=== PATIENT | female | born 1990 | race Caucasian/White ===

== ENCOUNTER 2016-07-30 19:14 | Emergency (ER) | payer SELFPAY ==
[~2016-07-30] VITALS: Ht 152.4 cm; Wt 46.3 kg
[2016-07-30 19:34] VITALS: BP 95/51; PULSE 80; RESP 20; TEMP 98.1; O2SAT 99
--- NOTE | 2016-07-30 20:52 | PD ---
HPI Chief Complaint: Abdominal Pain Time Seen by Provider: 20:49 Travel History International Travel<30 days: No Contact w/Intl Traveler<30days: No Traveled to known affect area: No History of Present Illness HPI The patient is a 25-year-old female, G1, P1, A0 who complains of bilateral pelvic pain for 1 day. She has been vaginal bleeding for about 1 day. Her last menstrual period was May 30. She did a home test that was positive. She denies any nausea, vomiting or diarrhea. She denies any fever. She does not have a bat lathe operator or any other doctor. She states she did not need RhoGAM on her first . She believes she is O+ blood type. [facility] Social History Tobacco Use: Yes Allergies-Medications (Allergen,Severity, Reaction): Coded Allergies: Amoxicillin (Verified Allergy, Severe, Hives, 07/30/16) Penicillin (Verified Allergy, Severe, Hives, 07/30/16) Review of Systems Except as stated in HPI: all other systems reviewed are Neg Physical Exam Narrative GENERAL: The patient is alert, oriented 3 and slight apparent distress with her pelvic pain. Her vital signs are normal. SKIN: Focused skin assessment warm/dry. HEAD: Atraumatic. Normocephalic. EYES: Pupils equal and round. No scleral icterus. No injection or drainage. ENT: No nasal bleeding or discharge. Mucous membranes pink and moist. NECK: Trachea midline. No JVD. CARDIOVASCULAR: Regular rate and rhythm. No murmur appreciated. RESPIRATORY: No accessory muscle use. Clear to auscultation. Breath sounds equal bilaterally. GASTROINTESTINAL: Abdomen soft, non-tender, nondistended. Hepatic and splenic margins not palpable. MUSCULOSKELETAL: No obvious deformities. No clubbing. No cyanosis. No edema. NEUROLOGICAL: Awake and alert. No obvious cranial nerve deficits. Motor grossly within normal limits. Normal speech. PSYCHIATRIC: Appropriate mood and affect; insight and judgment normal. GENITOURINARY: Normal external genitalia without lesions or erythema. Vaginal vault with blood and no other drainage. Cervical os was closed with bloody drainage. She has slight cervical motion tenderness. Uterus slightly tender and nonenlarged. Bilateral adnexa slightly tender without masses. Data Data Last Documented VS Vital Signs Date Time Temp Pulse Resp B/P Pulse Ox O2 Delivery O2 Flow Rate FiO2 07/30/16 21:14 98.6 80 18 101/54 100 Room Air Orders Beta Hcg (Quant/Titer) (07/30/16 20:49) Complete Blood Count With Diff (07/30/16 20:49) Basic Metabolic Panel (Bmp) (07/30/16 20:49) Complete Rh (07/30/16 20:49) Labs Laboratory Tests Test 07/30/16 21:00 White Blood Count 9.1 TH/MM3 Red Blood Count 4.27 MIL/MM3 Hemoglobin 13.1 GM/DL Hematocrit 39.1 % Mean Corpuscular Volume 91.6 FL Mean Corpuscular Hemoglobin 30.7 PG Mean Corpuscular Hemoglobin 33.5 % Concent Red Cell Distribution Width 12.4 % Platelet Count 386 TH/MM3 Mean Platelet Volume 6.3 FL Neutrophils (%) (Auto) 66.7 % Lymphocytes (%) (Auto) 22.0 % Monocytes (%) (Auto) 7.9 % Eosinophils (%) (Auto) 2.2 % Basophils (%) (Auto) 1.2 % Neutrophils # (Auto) 6.1 TH/MM3 Lymphocytes # (Auto) 2.0 TH/MM3 Monocytes # (Auto) 0.7 TH/MM3 Eosinophils # (Auto) 0.2 TH/MM3 Basophils # (Auto) 0.1 TH/MM3 CBC Comment DIFF FINAL Differential Comment Sodium Level 139 MEQ/L Potassium Level 3.6 MEQ/L Chloride Level 105 MEQ/L Carbon Dioxide Level 23.9 MEQ/L Anion Gap 10 MEQ/L Blood Urea Nitrogen 6 MG/DL Creatinine 0.64 MG/DL Estimat Glomerular Filtration 114 ML/MIN Rate Random Glucose 85 MG/DL Calcium Level 8.3 MG/DL Human Chorionic Gonadotropin, 1251 MIU/ML Quant Blood Type O POSITIVE Rho(D) Type POSITIVE MDM Medical Decision Making Medical Screen Exam Complete: Yes Emergency Medical Condition: Yes Medical Record Reviewed: Yes Interpretation(s) The CBC is normal. The basic metabolic profile is normal except for a calcium of 8.3. The quantitative beta-hCG is 1251. The blood type is O+. Differential Diagnosis Intrauterine , threatened AB, ectopic , anemia, Rh- status Narrative Course The patient appears to have a threatened AB. She does not have Rh- status and we do not know without a second titer whether her progression of beta titer is normal or not. Plan: The patient should get a repeat titer in about 3 or 4 days and follow-up with a bat lathe operator. If worse, she should return to emergency department. Diagnosis Primary Impression: Threatened Additional Instructions: As we discussed, you need to repeat the beta titer in 3 or 4 days and follow-up with a bat lathe operator. If you are worse with bleeding/pain you should return to emergency department. Take plain Tylenol for the pain. Disposition: 01 DISCHARGE HOME Condition: Stable Danny Jeffers MD Jul 30, 2016 20:52
[2016-07-30 21:14] VITALS: BP 101/54; PULSE 80; RESP 18; TEMP 98.6; O2SAT 100
[2016-07-30 21:20] LABS: AUTOMATED NEUTROPHIL # 6.1 TH/MM3 (1.8-7.7); BASOPHIL # 0.1 TH/MM3 (0-0.2); BASOPHIL % 1.2 % (0.0-2.0); EOSINOPHIL # 0.2 TH/MM3 (0-0.4); EOSINOPHIL % 2.2 % (0.0-4.0); HEMATOCRIT 39.1 % (35.0-46.0); HEMO FLAGS DIFF FINAL; MEAN CELL VOLUME 91.6 FL (80.0-100.0); MEAN CORPUSCULAR HEMOGLOBIN 30.7 PG (27.0-34.0); MEAN CORPUSCULAR HGB CONC 33.5 % (32.0-36.0); MONO % 7.9 % (0.0-8.0); NEUT % 66.7 % (16.0-70.0); PLATELET COUNT 386 TH/MM3 (150-450); RED BLOOD COUNT 4.27 MIL/MM3 (4.00-5.30); RED CELL DISTRIBUTION WIDTH 12.4 % (11.6-17.2); WHITE BLOOD COUNT 9.1 TH/MM3 (4.0-11.0)
[2016-07-30 21:30] LABS: POTASSIUM 3.6 MEQ/L (3.5-5.1)
[2016-07-30 21:33] LABS: BICARBONATE 23.9 MEQ/L (21.0-32.0)
[2016-07-30 22:41] VITALS: BP 128/66
== END 2016-07-30 22:43 | disposition home or self-care (01) ==
LOC: PHED 19:14
DX: O20.0 Threatened abortion (principal)
CPT/HCPCS: 80048; 84702; 85025; 86901; 99283

== ENCOUNTER 2016-11-16 21:52 | Emergency (ER) | payer SELFPAY ==
[~2016-11-16] VITALS: Ht 149.9 cm; Wt 45.0 kg
[2016-11-16 21:55] VITALS: BP 112/72; PULSE 83; RESP 16; TEMP 98.5; O2SAT 98
--- NOTE | 2016-11-16 22:04 | PD ---
HPI Chief Complaint: Flank/Kidney Pain Time Seen by Provider: 21:55 Travel History International Travel<30 days: No Contact w/Intl Traveler<30days: No Traveled to known affect area: No History of Present Illness HPI The patient is a 26 year old female who presents to the [facility] emergency department with a history of left-sided low back pain that she reports began between 2 and 3 PM today. The patient reports that she tried taking a nap to relieve the pain. She reports that at that time the pain was mild. The patient reports that an hour and a half prior to arrival the pain became severe. She reports that the pain as a stabbing and twisting sensation. She reports that it waxes and wanes in severity and is constant. She denies ever having a pain like this previously. She does report that a few days ago she had dysuria, however she began to push fluids and took cranberry pills, therefore this symptom resolved. She reports that when she had the dysuria she did have a pink tinge to her urine. She denies having any prior history of kidney stones. She does report having a family history of kidney stones. On review of systems, she denies having any recent fevers, cough, congestion, neck pain, chest pain, shortness of breath, abdominal pain, vomiting, diarrhea, vaginal discharge, or neurologic symptoms. LMP: And it a few days ago [facility] Past Medical History Narrative Medical The patient's past medical history is reportedly none. Medical History: Denies Significant Hx Diminished Hearing: No Tetanus Vaccination: Unknown Influenza Vaccination: No ?: Not LMP: 1 WEEK AGO : 2 Para: 1 Past Surgical History Narrative Surgical The patient's past surgical history is significant for a , tonsillectomy. Section: Yes Tonsillectomy: Yes Social History Alcohol Use: No Tobacco Use: Yes Substance Use: No Allergies-Medications (Allergen,Severity, Reaction): Coded Allergies: Amoxicillin (Verified Allergy, Severe, Hives, 11/16/16) Penicillin (Verified Allergy, Severe, Hives, 11/16/16) Reported Meds & Prescriptions Reported Meds & Active Scripts Active No Active Prescriptions or Reported Medications Review of Systems Except as stated in HPI: all other systems reviewed are Neg General / Constitutional: No: Fever Eyes: No: Visual changes HENT: No: Headaches Cardiovascular: No: Chest Pain or Discomfort Respiratory: No: Shortness of Breath Gastrointestinal: No: Abdominal Pain Genitourinary: Positive: Dysuria, Hematuria, Flank Pain (left-sided) Musculoskeletal: No: Pain Skin: No Rash Neurologic: No: Weakness Psychiatric: No: Depression Endocrine: No: Polydipsia Hematologic/Lymphatic: No: Easy Bruising Physical Exam Narrative General: The patient is a well-developed well-nourished female in no acute distress. Head and Neck exam: Head is normocephalic atraumatic. Eyes: EOMI, pupils are equal round and reactive to light. Nose: Midline septum with pink mucous membranes Mouth: Dentition unremarkable. Moist mucus membranes. Posterior oropharynx is not erythematous. No tonsillar hypertrophy. Uvula midline. Airway patent. Neck: No palpable lymphadenopathy. No nuchal rigidity. No thyromegaly. Cardiovascular: Regular rate and rhythm without murmurs, gallops, or rubs. Lungs: Clear to auscultation bilaterally. No wheezes, rhonchi, or rales. Abdomen: Soft, without tenderness to palpation in all 4 quadrants of the abdomen. No guarding, rebound, or rigidity. Normal bowel sounds are audible. No tenderness on palpation of McBurney's point. Negative Maloney's sign. Extremities: No clubbing, cyanosis, or edema. 2+ pulses in all 4 extremities. No calf tenderness on palpation. Back: No spinous process tenderness to palpation. Left-sided CVA tenderness on palpation. Neurologic Exam: Grossly nonfocal. Skin Exam: No rash noted. Intact skin that is warm and dry. Data Data Last Documented VS Vital Signs Date Time Temp Pulse Resp B/P Pulse Ox O2 Delivery O2 Flow Rate FiO2 11/16/16 21:55 98.5 83 16 112/72 98 Orders Complete Blood Count With Diff (11/16/16 22:00) Comprehensive Metabolic Panel (11/16/16 22:00) Lipase (11/16/16 22:00) Urinalysis - C+S If Indicated (11/16/16 22:00) Iv Access Insert/Monitor (11/16/16 22:00) Ecg Monitoring (11/16/16 22:00) Oximetry (11/16/16 22:00) Ed Urine Pregnancytest Poc (11/16/16 22:00) Sodium Chlor 0.9% 1000 Ml Inj (Ns 1000 M (11/16/16 23:00) Ondansetron Inj (Zofran Inj) (11/16/16 23:00) Ketorolac Inj (Toradol Inj) (11/16/16 23:00) Ct Abd/Pel W/O Iv Contrast (11/16/16 23:08) Sodium Chloride 0.9% Flush (Ns Flush) (11/16/16 23:15) Urine Culture (11/16/16 22:00) Ciprofloxacin 400 Mg Premix (Cipro 400 M (11/17/16 00:00) Labs Laboratory Tests Test 11/16/16 22:00 White Blood Count 8.9 TH/MM3 Red Blood Count 4.05 MIL/MM3 Hemoglobin 12.9 GM/DL Hematocrit 37.1 % Mean Corpuscular Volume 91.6 FL Mean Corpuscular Hemoglobin 31.9 PG Mean Corpuscular Hemoglobin 34.8 % Concent Red Cell Distribution Width 12.7 % Platelet Count 354 TH/MM3 Mean Platelet Volume 6.8 FL Neutrophils (%) (Auto) 60.8 % Lymphocytes (%) (Auto) 26.3 % Monocytes (%) (Auto) 7.0 % Eosinophils (%) (Auto) 3.5 % Basophils (%) (Auto) 2.4 % Neutrophils # (Auto) 5.4 TH/MM3 Lymphocytes # (Auto) 2.3 TH/MM3 Monocytes # (Auto) 0.6 TH/MM3 Eosinophils # (Auto) 0.3 TH/MM3 Basophils # (Auto) 0.2 TH/MM3 CBC Comment DIFF FINAL Differential Comment Urine Color YELLOW Urine Turbidity CLEAR Urine pH 7.0 Urine Specific [place] 1.014 Urine Protein 30 mg/dL Urine Glucose (UA) NEG mg/dL Urine Ketones NEG mg/dL Urine Occult Blood MOD Urine Nitrite NEG Urine Bilirubin NEG Urine Urobilinogen LESS THAN 2.0 MG/DL Urine Leukocyte Esterase LARGE Urine RBC 129 /hpf Urine WBC 46 /hpf Urine Squamous Epithelial <1 /hpf Cells Urine Amorphous Sediment RARE Urine Bacteria OCC /hpf Urine Mucus FEW /lpf Microscopic Urinalysis Comment CULTURE INDICATED Sodium Level 141 MEQ/L Potassium Level 3.5 MEQ/L Chloride Level 107 MEQ/L Carbon Dioxide Level 27.8 MEQ/L Anion Gap 6 MEQ/L Blood Urea Nitrogen 9 MG/DL Creatinine 0.65 MG/DL Estimat Glomerular Filtration 111 ML/MIN Rate Random Glucose 84 MG/DL Calcium Level 8.5 MG/DL Total Bilirubin 0.2 MG/DL Aspartate Amino Transf 21 U/L (AST/SGOT) Alanine Aminotransferase 17 U/L (ALT/SGPT) Alkaline Phosphatase 61 U/L Total Protein 7.3 GM/DL Albumin 3.6 GM/DL Lipase 109 U/L MDM Medical Decision Making Medical Screen Exam Complete: Yes Emergency Medical Condition: Yes Medical Record Reviewed: Yes Interpretation(s) Last Impressions Abdomen/Pelvis CT 11/16/16 1553 Signed Impressions: Service Date/Time: Wednesday, November 16, 2016 23:46 - CONCLUSION: 1. The kidneys are unremarkable appearance with no renal calculi or evidence of obstruction. 2. 3-4 mm calcification in the left side of the pelvis which is nonspecific. This may represent a calcified phlebolith. A ureteral calculus is felt to be less likely but is difficult to exclude since the ureter could not be visualized. A contrast enhanced CT with delayed imaging could be performed. Reuben Burden MD Differential Diagnosis Pyelonephritis, versus kidney stone, versus musculoskeletal strain Narrative Course During the course of the patients emergency department visit, the patients history, examination, and differential diagnosis were reviewed with the patient. The patient had IV access obtained and blood work sent for analysis. The patient was placed on a quality assurance monitor with oximetry and blood pressure monitoring. The patient was initially provided normal saline 1 L IV fluid bolus, Toradol 15 mg IV, Zofran 4 mg IV. The patients laboratory studies were reviewed and remarkable for a CBC that shows a white count of 8.9, hemoglobin 12.9, platelets 354 with 2.4 Basos, CMP is unremarkable, lipase 109, urinalysis shows 30 protein, moderate occult blood , large leukocyte esterase, RBC 129, the PVC 46, occasional bacteria, culture indicated. The patient was given ciprofloxacin 400 mg IV. Radiology studies were reviewed and remarkable for a CT scan of the abdomen and pelvis that shows that the kidneys are unremarkable in appearance with no renal calculi or evidence of obstruction. There is a 3-4 mm calcification in the left side of the pelvis which is nonspecific. This may represent a calcified phlebolith. A ureteral calculus is felt to be less likely but it is difficult to exclude since the ureter could not be visualized. The patient will be discharged home with a prescription for antibiotic and close follow-up with the urologist for additional imaging if she continues to have pain. The patient is given the name of the urologist on-call, Dr. Bhatt for follow-up. The patient is given a prescription for ciprofloxacin and Lortab. The patient is resting comfortably and feels better, is alert and in no distress. The patients results and examination findings were discussed with the patient. The repeat examination is unremarkable and benign. The history, exam, diagnostic testing, and current condition do not suggest any significant pathology to warrant further testing, continued ED treatment, admission, or surgical evaluation at this point. The vital signs have been stable. The patient does not have uncontrollable pain, intractable vomiting, or other significant symptoms. The patient's condition is stable and appropriate for discharge. The patient will pursue further outpatient evaluation with a primary care physician or other designated or consulting physician as indicated in the discharge instructions. The patient expressed understanding and was agreeable with this plan. Diagnosis Primary Impression: Kidney infection Referrals: Timoteo Marquez MD 2 days Patient Instructions: General Instructions, Kidney Infection (ED) Med/Other Pt SpecificInfo: Prescription(s) given Scripts Hydrocodone-Acetaminophen (Lortab)5-325 Mg Tab1 Tab PO Q6H PRN (PAIN) #12 TAB Ref 0 Prov:Patricia Johnson MD 11/17/16 Ciprofloxacin (Cipro)500 Mg [id number] Mg PO BID #13 TAB Ref 0 Prov:Patricia Johnson MD 11/17/16 Disposition: 01 DISCHARGE HOME Condition: Stable Patricia Johnson MD Nov 16, 2016 22:04
[2016-11-16 22:40] LABS: AUTOMATED NEUTROPHIL # 5.4 TH/MM3 (1.8-7.7); BASOPHIL # 0.2 TH/MM3 (0-0.2); BASOPHIL % 2.4 % (0.0-2.0); EOSINOPHIL # 0.3 TH/MM3 (0-0.4); EOSINOPHIL % 3.5 % (0.0-4.0); HEMATOCRIT 37.1 % (35.0-46.0); HEMO FLAGS DIFF FINAL; LYMPH % 26.3 % (9.0-44.0); LYMPHOCYTE # 2.3 TH/MM3 (1.0-4.8); MEAN CELL VOLUME 91.6 FL (80.0-100.0); MEAN CORPUSCULAR HEMOGLOBIN 31.9 PG (27.0-34.0); MEAN CORPUSCULAR HGB CONC 34.8 % (32.0-36.0); NEUT % 60.8 % (16.0-70.0); PLATELET COUNT 354 TH/MM3 (150-450); RED BLOOD COUNT 4.05 MIL/MM3 (4.00-5.30); RED CELL DISTRIBUTION WIDTH 12.7 % (11.6-17.2); WHITE BLOOD COUNT 8.9 TH/MM3 (4.0-11.0)
[2016-11-16 22:58] LABS: ANION GAP 6 MEQ/L (5-15); AST (GOT) 21 U/L (15-37); BICARBONATE 27.8 MEQ/L (21.0-32.0); BLOOD UREA NITROGEN 9 MG/DL (7-18); CHLORIDE 107 MEQ/L (98-107); GLOMERULAR FILTRATION RATE 111 ML/MIN (>89); POTASSIUM 3.5 MEQ/L (3.5-5.1); SODIUM (NA) 141 MEQ/L (136-145)
[2016-11-16] MEDS ORDERED: ONDANSETRON HCL 4 MG/2 ML VIAL IV ONE (23:00)
[2016-11-16] MEDS ORDERED: SODIUM CHLOR 0.9% 1000 ML INJ 1,000 ML IV ONE (23:00)
[2016-11-16] MEDS ORDERED: KETOROLAC TROMETHAMINE 30 MG/ML (IVP) VIAL IV PUSH ONE (23:00)
[2016-11-16 23:03] LABS: ALKALINE PHOSPHATASE 61 U/L (45-117); ALT (GPT) 17 U/L (10-53); TOTAL BILIRUBIN ADULT 0.2 MG/DL (0.2-1.0)
[2016-11-16 23:09] LABS: BACTERIA, URINE OCC /hpf; BLOOD, URINE MOD (NEG); COMMENT (UR) CULTURE INDICATED; CULTURE IF INDICATED CULTURE INDICATED; GLUCOSE,URINE NEG (NEG); KETONE, URINE NEG (NEG); MUCUS URINE FEW /lpf (OCC); NITRITE,URINE NEG (NEG); SQUAMOUS EPITHELIAL CELL URINE <1 /hpf (0-5); URINE COLOR YELLOW (YELLW/STRAW)
[2016-11-16] MEDS ORDERED: SODIUM CHLORIDE 0.9% FLUSH 10 ML FLUSH IV FLUSH PRN (23:15)
[2016-11-17] MEDS ORDERED: CIPROFLOXACIN 400 MG PREMIX 200 ML IV ONE
--- NOTE | 2016-11-17 00:08 | RADRPT ---
EXAM DATE/TIME: 11/16/2016 23:46 [facility] COMPARISON: No previous studies available for comparison. INDICATIONS : Left flank pain. ORAL CONTRAST: No oral contrast ingested. RADIATION DOSE: 2.87 CTDIvol (mGy) MEDICAL HISTORY : None SURGICAL HISTORY : section. Tonsillectomy. ENCOUNTER: Initial ACUITY: 1 day PAIN SCALE: 6/10 LOCATION: Left flank TECHNIQUE: Volumetric scanning of the abdomen and pelvis was performed. Using automated exposure control and ad justment of the mA and/or kV according to patient size, radiation dose was kept as low as reasonably achievable to obtain optimal diagnostic quality images. DICOM format image data is available electro nically for review and comparison. FINDINGS: LOWER LUNGS: The visualized lower lungs are clear. LIVER: Homogeneous density without lesion. There is no dilation of the biliary tree. No calcified gallston es. SPLEEN: Normal size without lesion. PANCREAS: Within normal limits. KIDNEYS: Normal in size and shape. There is no mass, stone, or hydronephrosis. The ureters are not visualized . ADRENAL GLANDS: Within normal limits. VASCULAR: There is no aortic aneurysm. BOWEL/MESENTERY: No oral contrast was given limiting the sensitivity of the exam. There is minimal mesenteric fat in t he bowel loops and are not well . This limits visualization. The stomach, small bowel, and c olon demonstrate no acute abnormality. There is no free intraperitoneal air or fluid. There is a 3-4 mm calcification within the left side of the pelvis. ABDOMINAL WALL: Within normal limits. RETROPERITONEUM: There is no lymphadenopathy. BLADDER: No wall thickening or mass. REPRODUCTIVE: Within normal limits. INGUINAL: There is no lymphadenopathy or hernia. MUSCULOSKELETAL: Within normal limits for patient age. CONCLUSION: 1. The kidneys are unremarkable appearance with no renal calculi or evidence of obstruction. 2. 3-4 mm calcification in the left side of the pelvis which is nonspecific. This may represent a freddy cified phlebolith. A ureteral calculus is felt to be less likely but is difficult to exclude since th e ureter could not be visualized. A contrast enhanced CT with delayed imaging could be performed. Reuben Burden MD on November 17, 2016 at 0:00 Board Certified Radiologist. This report was verified electronically.
[2016-11-17] MEDS ORDERED: CIPR-9 PO (00:41)
[2016-11-17] MEDS ORDERED: HYDR-3533 PO (00:41)
[2016-11-17 00:58] VITALS: BP 113/57
== END 2016-11-17 01:08 | disposition home or self-care (01) ==
LOC: NEPE 21:52
DX: N15.9 Renal tubulo-interstitial disease, unspecified (principal); B95.7 Other staphylococcus as the cause of diseases classified elsewhere
CPT/HCPCS: 74176; 80053; 81001; 83690; 84703; 85025; 87077; 87086; 87186; 96361; 96374; 96375; 99285; J0744; J1885; J2405; J7030

== ENCOUNTER 2017-01-30 20:12 | Emergency (ER) | payer SELFPAY ==
[~2017-01-30] VITALS: Ht 149.9 cm; Wt 43.6 kg
[~2017-01-30 20:12] MED LIST: CIPR-9 PO; HYDR-3533 PO
[2017-01-30 20:19] VITALS: BP 99/52; PULSE 90; RESP 20; TEMP 98.1; O2SAT 99
[2017-01-30 20:42] LABS: BLOOD, URINE LARGE (NEG); GLUCOSE,URINE NEG (NEG); KETONE, URINE NEG (NEG); NITRITE,URINE NEG (NEG)
[2017-01-30] MEDS ORDERED: SODIUM CHLOR 0.9% 1000 ML INJ 1,000 ML IV ONE (20:45)
[2017-01-30] MEDS ORDERED: KETOROLAC TROMETHAMINE 30 MG/ML (IVP) VIAL IV PUSH ONE (20:45)
[2017-01-30] MEDS ORDERED: ONDANSETRON HCL 4 MG/2 ML VIAL IV PUSH ONE (20:45)
--- NOTE | 2017-01-30 20:45 | PD ---
HPI Chief Complaint: Flank/Kidney Pain Time Seen by Provider: 20:28 Travel History International Travel<30 days: No Contact w/Intl Traveler<30days: No Traveled to known affect area: No History of Present Illness HPI 26yo F with PMH of pyelonephritis presents to the ED with c/o dysuria, bilateral back pain for 2 days. States started with left back and now it is more right back. +Nausea. Laying still makes it better, movement worsens pain. Pain is sharp and nonradiating. Denies any fever, chest pain, sob, vomiting, hematuria, vaginal bleeding or discharge, IVDA, focal weakness or numbness. Said she took tramadol. PFSH Past Medical History Diminished Hearing: No ?: Unknown LMP: THE Dec : 2 Para: 1 Past Surgical History Section: Yes Tonsillectomy: Yes Social History Alcohol Use: No Tobacco Use: Yes Substance Use: No Allergies-Medications (Allergen,Severity, Reaction): Coded Allergies: amoxicillin (Verified Allergy, Severe, Hives, 01/30/17) penicillin G (Verified Allergy, Severe, Hives, 01/30/17) Reported Meds & Prescriptions Reported Meds & Active Scripts Active Tylenol (Acetaminophen) 325 Mg Tab 650 Mg PO Q6H PRN Bactrim DS (Sulfamethoxazole-Trimethoprim) 800-160 Mg Tab 1 Tab PO BID Lortab (Hydrocodone-Acetaminophen) 5-325 Mg Tab 1 Tab PO Q6H PRN Cipro (Ciprofloxacin HCl) 500 Mg Tab 500 Mg PO BID Review of Systems Except as stated in HPI: all other systems reviewed are Neg Physical Exam Narrative GENERAL: 26yo F in mild distress. SKIN: Focused skin assessment warm/dry. HEAD: Atraumatic. Normocephalic. EYES: Pupils equal and round. No scleral icterus. No injection or drainage. CARDIOVASCULAR: Regular rate and rhythm. No murmur appreciated. RESPIRATORY: No accessory muscle use. Clear to auscultation. Breath sounds equal bilaterally. GASTROINTESTINAL: Abdomen soft, non-tender, nondistended. BACK: +CVA tenderness right. No midline ttp thoracic or lumbar spine. MUSCULOSKELETAL: No obvious deformities. No clubbing. No cyanosis. No edema. NEUROLOGICAL: Awake and alert. No obvious cranial nerve deficits. Motor grossly within normal limits. Normal speech. PSYCHIATRIC: Appropriate mood and affect; insight and judgment normal. Data Data Last Documented VS Vital Signs Date Time Temp Pulse Resp B/P (MAP) Pulse Ox O2 Delivery O2 Flow Rate FiO2 01/30/17 22:39 89 16 148/82 (104) 99 Room Air 01/30/17 20:19 98.1 Orders Orders Urinalysis - C+S If Indicated (01/30/17 20:32) Ed Urine Pregnancytest Poc (01/30/17 20:33) Complete Blood Count With Diff (01/30/17 20:40) Basic Metabolic Panel (Bmp) (01/30/17 20:40) Lipase (01/30/17 20:40) Sodium Chlor 0.9% 1000 Ml Inj (Ns 1000 M (01/30/17 20:45) Ondansetron Inj (Zofran Inj) (01/30/17 20:45) Ketorolac Inj (Toradol Inj) (01/30/17 20:45) Urine Culture (01/30/17 20:35) Sulfamet-Trimeth Ds 800-160 Mg (Bactrim (01/30/17 22:45) Ed Discharge Order (01/30/17 22:47) Morphine Inj (Morphine Inj) (01/30/17 23:45) Labs Laboratory Tests Test 01/30/17 20:35 01/30/17 20:56 Urine Color YELLOW Urine Turbidity CLEAR Urine pH 6.0 Urine Specific [place] 1.013 Urine Protein 30 mg/dL Urine Glucose (UA) NEG mg/dL Urine Ketones NEG mg/dL Urine Occult Blood LARGE Urine Nitrite NEG Urine Bilirubin NEG Urine Leukocyte Esterase MOD Urine RBC 20-24 /hpf Urine WBC 100-200 /hpf Urine WBC Clumps FEW Urine Squamous Epithelial Cells 0-5 /hpf Urine Bacteria FEW /hpf Urine Mucus FEW /lpf Microscopic Urinalysis Comment CULTURE INDICATED White Blood Count 8.8 TH/MM3 Red Blood Count 3.94 MIL/MM3 Hemoglobin 11.7 GM/DL Hematocrit 35.5 % Mean Corpuscular Volume 90.1 FL Mean Corpuscular Hemoglobin 29.8 PG Mean Corpuscular Hemoglobin Concent 33.0 % Red Cell Distribution Width 12.8 % Platelet Count 386 TH/MM3 Mean Platelet Volume 5.9 FL Neutrophils (%) (Auto) 60.4 % Lymphocytes (%) (Auto) 27.1 % Monocytes (%) (Auto) 7.3 % Eosinophils (%) (Auto) 4.4 % Basophils (%) (Auto) 0.8 % Neutrophils # (Auto) 5.3 TH/MM3 Lymphocytes # (Auto) 2.4 TH/MM3 Monocytes # (Auto) 0.6 TH/MM3 Eosinophils # (Auto) 0.4 TH/MM3 Basophils # (Auto) 0.1 TH/MM3 CBC Comment DIFF FINAL Differential Comment Blood Urea Nitrogen 8 MG/DL Creatinine 0.54 MG/DL Random Glucose 79 MG/DL Calcium Level 8.1 MG/DL Sodium Level 137 MEQ/L Potassium Level 3.3 MEQ/L Chloride Level 105 MEQ/L Carbon Dioxide Level 27.0 MEQ/L Anion Gap 5 MEQ/L Estimat Glomerular Filtration Rate 138 ML/MIN Lipase 91 U/L MDM Medical Decision Making Medical Screen Exam Complete: Yes Emergency Medical Condition: Yes Differential Diagnosis Pyelonephritis vs. UTI vs. musculoskeletal pain Narrative Course 26yo F with dysuria and right sided back pain. Pt is well appearing and feels nauseous but no vomiting or fever. Labs reviewed, no leukocytosis. K: 3.3, tolerating PO. Lipase normal. UA showed moderate leukocyte. WBC 100-200. VS wnl. Pt given toradol, morphine zofran, and NS IVF. Pt also given bactrim, said she didnt like cipro. Urine negative. Pain and nausea improved. Pt is well appearing and tolerating PO. Will try outpatient therapy first. Strict return precautions given. Diagnosis Primary Impression: Pyelonephritis Patient Instructions: General Instructions Departure Forms: Tests/Procedures Additional Instructions: Please follow up with your primary care physician in 3-7 days. Please return to the ED if you have worsening pain, fever, vomiting and unable to keep anything down. Med/Other Pt SpecificInfo: Prescription(s) given Scripts Acetaminophen (Tylenol) 325 Mg Tab 650 MG PO Q6H Y for PAIN SCALE 1 TO 4, #20 TAB 0 Refills Prov: Germaine Fabian DO 01/30/17 Sulfamethoxazole-Trimethoprim (Bactrim DS) 800-160 Mg Tab 1 TAB PO BID for Infection, #14 TAB 0 Refills Prov: Germaine Fabian DO 01/30/17 Disposition: 01 DISCHARGE HOME Condition: Stable Germaine Fabian DO Jan 30, 2017 20:45
[2017-01-30 20:49] LABS: URINE COLOR YELLOW (YELLW/STRAW)
[2017-01-30 20:50] LABS: BACTERIA, URINE FEW /hpf; COMMENT (UR) CULTURE INDICATED; CULTURE IF INDICATED CULTURE INDICATED; MUCUS URINE FEW /lpf (OCC); SQUAMOUS EPITHELIAL CELL URINE 0-5 /hpf (0-5); WBC, URINE 100-200 /hpf (0-5)
[2017-01-30 21:00] LABS: AUTOMATED NEUTROPHIL # 5.3 TH/MM3 (1.8-7.7); BASOPHIL # 0.1 TH/MM3 (0-0.2); BASOPHIL % 0.8 % (0.0-2.0); EOSINOPHIL # 0.4 TH/MM3 (0-0.4); EOSINOPHIL % 4.4 % (0.0-4.0); HEMATOCRIT 35.5 % (35.0-46.0); HEMO FLAGS DIFF FINAL; LYMPH % 27.1 % (9.0-44.0); LYMPHOCYTE # 2.4 TH/MM3 (1.0-4.8); MEAN CELL VOLUME 90.1 FL (80.0-100.0); MEAN CORPUSCULAR HEMOGLOBIN 29.8 PG (27.0-34.0); MONO % 7.3 % (0.0-8.0); NEUT % 60.4 % (16.0-70.0); PLATELET COUNT 386 TH/MM3 (150-450); RED BLOOD COUNT 3.94 MIL/MM3 (4.00-5.30); RED CELL DISTRIBUTION WIDTH 12.8 % (11.6-17.2); WHITE BLOOD COUNT 8.8 TH/MM3 (4.0-11.0)
[2017-01-30 21:10] LABS: POTASSIUM 3.3 MEQ/L (3.5-5.1)
[2017-01-30 22:39] VITALS: BP 148/82; PULSE 89; RESP 16; O2SAT 99
[2017-01-30] MEDS ORDERED: SULFAMETHOXAZOLE-TRIMETHOPRIM DS 800-160 MG TAB PO ONE (22:45)
[2017-01-30] MEDS ORDERED: TYLE325T PO (22:47)
[2017-01-30] MEDS ORDERED: BACT800T5 PO (22:47)
[2017-01-30] MEDS ORDERED: MORPHINE SULFATE 4 MG/ML INJ IM ONE (23:45)
== END 2017-01-31 00:10 | disposition home or self-care (01) ==
LOC: PHED 20:12
DX: N12 Tubulo-interstitial nephritis, not specified as acute or chronic (principal); B95.7 Other staphylococcus as the cause of diseases classified elsewhere; R30.0 Dysuria; R11.0 Nausea; Z72.0 Tobacco use
CPT/HCPCS: 80048; 81001; 83690; 84703; 85025; 86403; 87077; 87086; 87186; 96361; 96372; 96374; 96375; 99284; J1885; J2270; J2405; J7030